=== PATIENT | female | born 1980 | race Two or more races ===

== ENCOUNTER 2024-05-18 16:00 | Emergency (ER) | payer SELFPAY ==
[2024-05-18 16:07] VITALS: BP 145/84; PULSE 88; RESP 18; TEMP 98.8; BMI 31.6
[2024-05-18] MEDS ORDERED: ACETAMINOPHEN 500 MG TABLET (FP) ONE (17:18)
[2024-05-18] MEDS ORDERED: METOCLOPRAMIDE HCL 10 MG TABLET (FP) PO ONE (17:18)
[2024-05-18] MEDS: ACETAMINOPHEN 325 MG TABLET (FP) PO ONE (17:23)
[2024-05-18] MEDS: METOCLOPRAMIDE HCL 10 MG TABLET (FP) PO ONE (17:23)
[2024-05-18] MEDS ORDERED: HYDROmorphone HCL CARPU-JECT 2 MG/1 ML DISP.SYRIN ONE (17:39)
[2024-05-18] MEDS ORDERED: LIDOCAINE 4% PATCH TP ONE ×2 (17:44→18:39)
== END 2024-05-18 20:07 | disposition left against medical advice (07) ==
LOC: JER 16:00
DX: R51.9 Headache, unspecified (principal)
CPT/HCPCS: 99283-25